=== PATIENT | male | born 1960 ===

== ENCOUNTER 2024-10-26 06:30 | Day surgery (SDC) | payer BC, SELFPAY ==
[2024-10-26 12:34] VITALS: BP 161/89
[2024-10-26 12:40] VITALS: BMI 23.1
[2024-10-26 14:57] VITALS: BP 127/82
[2024-10-26 15:00] VITALS: BP 140/74
[2024-10-26 15:15] VITALS: BP 137/77
--- NOTE | 2024-10-26 15:40 | VATNOTE ---
right subcutaneous port flushed with 10mls nss and 500 units of heparin. deaccessed. occlusive dressing applied
== END 2024-10-26 15:46 | disposition home or self-care (01) ==
LOC: SDS 06:30
PROVIDERS: ATTENDING PHYSICIAN Internal Medicine Gastroenterology
DX: C25.9 Malignant neoplasm of pancreas, unspecified (principal); K31.89 Other diseases of stomach and duodenum; R93.5 Abnormal findings on diagnostic imaging of other abdominal regions, including retroperitoneum; Z92.21 Personal history of antineoplastic chemotherapy; Z90.411 Acquired partial absence of pancreas; Z90.49 Acquired absence of other specified parts of digestive tract; Z08 Encounter for follow-up examination after completed treatment for malignant neoplasm
CPT/HCPCS: 43237